=== PATIENT | male | born 1965 | race Caucasian/White ===

== ENCOUNTER 2019-03-19 14:08 | Emergency (ER) | payer BC ==
[~2019-03-19] VITALS: Ht 182.9 cm; Wt 98.6 kg
[2019-03-19 14:14] VITALS: Ht 182.9 cm; Wt 98.6 kg
[2019-03-19] MEDS ORDERED: COZAAR50 MG PO (14:16)
[2019-03-19] MEDS ORDERED: SYNTHROID50 MCG PO (14:16)
[2019-03-19] MEDS ORDERED: IBUPROFEN800 MG PO (14:17)
[2019-03-19 14:51] LABS: BASOPHILS 0.3 % (0-2); EOSINOPHILS 3.4 % (0-7); HEMOGLOBIN 12.8 g/dL (13.5-17.5); IMMATURE GRANULOCYTES 0.2 % (0-5); LYMPHOCYTES 7.8 % (15-50); MCH 30.7 pg (26.0-34.0); MCHC 33.7 g/dL (31.0-37.0); MCV 91.1 fL (80.0-100.0); MEAN PLATELET VOLUME 9.8 fL (7.4-10.4); MONOCYTES 14.7 % (2-11); NEUTROPHILS 73.6 % (40-80); PLATELET COUNT 214 10x3/uL (130-400); RBC 4.17 10x6/uL (4.20-6.10); RDW 13.5 % (11.5-14.5); WBC 6.4 10x3/uL (4.8-10.8)
[2019-03-19 15:09] LABS: ALBUMIN 3.3 g/dL (3.4-5.0); ALKALINE PHOSPHATASE 70 U/L (46-116); ALT (SGPT) 27 U/L (10-68); BILIRUBIN - TOTAL 0.26 mg/dL (0.2-1.3); CALC OSMOLALITY 281 mosm/kg (275-300); CALCIUM 10.8 mg/dL (8.5-10.1); CARBON DIOXIDE 27.1 mmol/L (21.0-32.0); CHLORIDE - SERUM 104 mmol/L (98-107); CREATININE - SERUM 1.5 mg/dL (0.6-1.3); GLUCOSE 87 mg/dL (74-106); POTASSIUM - SERUM 3.7 mmol/L (3.5-5.1); PROTEIN - SERUM 6.6 g/dL (6.4-8.2); SODIUM 140 mmol/L (136-145); UREA NITROGEN 25 mg/dL (7-18); eGFR NON AFRICAN AMERICAN 52 mL/min (90-120)
[2019-03-19 15:13] LABS: AMYLASE - SERUM 49 U/L (25-115); LIPASE 120 U/L (73-393); TROPONIN-I < 0.017 ng/mL (0.000-0.060)
[2019-03-19 15:37] LABS: APPEARANCE CLEAR (CLEAR); BILIRUBIN NEGATIVE (NEGATIVE); COLOR YELLOW (YELLOW); GLUCOSE NEGATIVE (NEGATIVE); KETONE NEGATIVE (NEGATIVE); NITRITE NEGATIVE (NEGATIVE); PROTEIN NEGATIVE (NEGATIVE); SPECIFIC GRAVITY 1.015 (1.005-1.020); UROBILINOGEN NORMAL (NORMAL)
[2019-03-19 17:17] VITALS: BP 146/94
== END 2019-03-19 17:18 | disposition home or self-care (01) ==
LOC: D.ER 14:08
PROVIDERS: Emergency Medicine
DX: E86.0 Dehydration (principal); D64.9 Anemia, unspecified